=== PATIENT | female | born 2000 | race Caucasian/White ===

== ENCOUNTER 2018-10-24 11:47 | Day surgery (SDC) | payer BC ==
[~2018-10-24] VITALS: Ht 157.5 cm; Wt 50.6 kg
[~2018-10-24 11:47] MED LIST: LIDOCAINE 1%, 20ML ONE
[2018-10-24] MEDS ORDERED: LACTATED RINGERS 1,000 ML IV SCH (12:35)
[2018-10-24] MEDS ORDERED: ACET-1600 PO (12:37)
[2018-10-24] MEDS ORDERED: NAPR-850 PO (12:37)
[2018-10-24 12:38] VITALS: BP 98/65
[2018-10-24] MEDS ORDERED: LIDOCAINE 1%, 20ML ONE (13:00)
[2018-10-24] MEDS ORDERED: PLEASE ENTER HEIGHT AND WEIGHT MC SCH (13:00)
[2018-10-24] MEDS ORDERED: MIDAZOLAM 1 MG/ML, 2ML ONE ×2 (13:00→14:44)
[2018-10-24] MEDS ORDERED: FENTANYL PF 250 MCG/5ML ONE (13:00)
[2018-10-24] MEDS ORDERED: ROPIvacaine/PF 0.5%, 30 ML ONE (13:20)
[2018-10-24] MEDS ORDERED: EPINEPHRINE 1 MG/ML, 1ML ONE (13:21)
[2018-10-24 13:24] LABS: HCG UR SG 1.033 (1.003-1.030)
[2018-10-24] MEDS ORDERED: ONDANSETRON 2MG/ML, 2ML IV PRN (13:30)
[2018-10-24] MEDS ORDERED: hydrALAzine 20 MG/ML, 1ML IV PRN (13:30)
[2018-10-24] MEDS ORDERED: PROPOFOL 10 MG/ML, 20ML ONE (13:30)
[2018-10-24] MEDS ORDERED: PROMETHAZINE 25 MG/ML, 1ML IV PRN (13:30)
[2018-10-24] MEDS ORDERED: PROMETHAZINE 25 MG/ML, 1ML IM PRN ×2 (13:30)
[2018-10-24] MEDS ORDERED: CEFAZOLIN 1,000 MG ONE (13:30)
[2018-10-24] MEDS ORDERED: LABETALOL 5MG/ML, 20ML IV PRN (13:30)
[2018-10-24] MEDS ORDERED: DEXAMETHASONE 4 MG/ML, 1ML ONE (13:30)
[2018-10-24] MEDS ORDERED: ACETAMINOPHEN 325 MG TABLET PO PRN (13:30)
[2018-10-24] MEDS ORDERED: ONDANSETRON ODT 8 MG PO PRN (13:30)
[2018-10-24] MEDS ORDERED: HALOPERIDOL 5 MG/ML IV PRN (13:30)
[2018-10-24] MEDS ORDERED: MEPERIDINE/PF 25MG/0.5ML IVPush PRN (13:30)
[2018-10-24] MEDS ORDERED: PROMETHAZINE 25 MG SUPP PR PRN (13:30)
[2018-10-24] MEDS ORDERED: ONDANSETRON 2MG/ML, 2ML ONE (13:30)
[2018-10-24] MEDS ORDERED: FENTANYL PF 100 MCG/2ML IV PRN (13:30)
[2018-10-24] MEDS ORDERED: PROMETHAZINE 12.5 MG SUPP PR PRN (13:30)
[2018-10-24] MEDS ORDERED: HYDROmorphone 2 MG/ML, 1ML IVPush PRN (13:30)
[2018-10-24] MEDS ORDERED: OXYcodone 5 MG/5 ML ORAL.SOL UDC PO PRN (13:30)
[2018-10-24] MEDS ORDERED: MORPHINE SULFATE 4 MG/ML, 1ML IVPush PRN (13:30)
[2018-10-24] MEDS ORDERED: OXYcodone 5 MG/5 ML ORAL.SOL UDC ONE ×2 (14:24→14:59)
[2018-10-24] MEDS ORDERED: MEPERIDINE/PF 25MG/ML,1ML ONE (14:24)
[2018-10-24] MEDS ORDERED: FENTANYL PF 100 MCG/2ML ONE (14:36)
[2018-10-24] MEDS ORDERED: KETOROLAC 30 MG/1 ML ONE (14:42)
[2018-10-24] MEDS ORDERED: KETOROLAC 30 MG/1 ML IVPush ONE (15:00)
[2018-10-24] MEDS ORDERED: DIPHENHYDRAMINE 50 MG/ML, 1ML IVPush PRN (15:00)
[2018-10-24] MEDS ORDERED: MIDAZOLAM 1 MG/ML, 2ML IV PRN (15:00)
== END 2018-10-24 16:40 | disposition home or self-care (01) ==
LOC: OUT 11:47
PROVIDERS: ATTEND Orthopaedic Surgery
DX: S83.241A Other tear of medial meniscus, current injury, right knee, initial encounter (principal); M65.861 Other synovitis and tenosynovitis, right lower leg; X58.XXXA Exposure to other specified factors, initial encounter; Y93.89 Activity, other specified; Y92.89 Other specified places as the place of occurrence of the external cause; Y99.8 Other external cause status
CPT/HCPCS: 29882; 81025; J0171; J0690; J1100; J1885; J2175; J2250; J2405; J2704; J2795; J3010; J3490; J7120